=== PATIENT | male | born 1955 | race Caucasian/White ===

== ENCOUNTER → 2022-05-29 10:07 | Outpatient (BNVA) | payer OTHER, SELFPAY | PROVIDERS: Family Provider Family Medicine; PCP Family Medicine; Visit Provider Nurse Practitioner Family | DX: R14.0 Abdominal distension (gaseous) (principal); R10.9 Unspecified abdominal pain | CPT/HCPCS: 74018 ==

== ENCOUNTER → 2022-09-16 09:43 | Outpatient (BNVA) | payer OTHER, SELFPAY | PROVIDERS: Family Provider Family Medicine; PCP Family Medicine; Visit Provider Family Medicine | DX: I25.10 Atherosclerotic heart disease of native coronary artery without angina pectoris (principal); J44.9 Chronic obstructive pulmonary disease, unspecified | CPT/HCPCS: 80053; 80061; 85025 ==

== ENCOUNTER 2023-09-17 12:41 | Emergency (ER) | payer OTHER, SELFPAY ==
[2023-09-17 12:45] VITALS: BP 129/66; PULSE 63; RESP 18; TEMP 36.9; O2SAT 98; BMI 22.4
--- NOTE | 2023-09-17 12:50 | ECG_ITS ---
[facility] Test Date: 2023-09-17 Pat Name: Osmani Hill Department: Room: Gender: Male [employer]attling [employer] Tender: : 1955 Requested By: Grecia Silverman Order Number: [id number] Alisia MD: Jonel Reynolds M.D. Measurements Intervals [place] Rate: 64 P: 68 SD: 141 QRS: 65 QRSD: 89 T: 68 QT: 400 QTc: 415 Interpretive Statements SINUS RHYTHM No previous ECG available for comparison Electronically Signed On 09-17-2023 16:50:57 CDT by Jonel Reynolds M.D. [id number]
--- NOTE | 2023-09-17 12:50 | XRR_ITS ---
PROCEDURE INFORMATION: Exam: XR Chest Exam date and time: 09/17/2023 1:24 PM Age: 67 years old Clinical indication: Pain; Angina pectoris; Prior surgery; Surgery date: 6+ months; Surgery type: Hernia/angiogram with a coil placed; Additional info: Chest pain TECHNIQUE: Imaging protocol: Radiologic exam of the chest. Views: 1 view. COMPARISON: CR XR abdomen 1V* [id number] 05/29/2022 10:19 AM FINDINGS: Lungs: Emphysematous change suggested and particularly upper lobe on the right. No focal infiltrate or consolidation. Pleural spaces: No pleural effusion or pneumothorax. Heart/Mediastinum: Cardiac size is within normal limits. No cardiomegaly. Postsurgical change upper mediastinum on the right. This could be related to coil as noted by the clinical history and for clinical correlation. Bones/joints: Visualized osseous structures show no acute abnormality. XR/XR chest 1V portable [id number] IMPRESSION: 1. Suggestion of emphysematous change and particularly upper lobe on the right. 2. No acute findings.
[2023-09-17 13:39] LABS: Basophils % 0.3 %; Eosinophils % 0.5 %; Hematocrit 41.3 % (37-53); Lymphocytes # 1.1 10^3/uL (0.8-4.8); Lymphocytes % 29.1 %; Mean Corpuscular HGB Conc 34.6 g/dL (30-55); Mean Corpuscular Hemoglobin 32.1 pg (27-33); Mean Corpuscular Volume 92.6 fl (82-101); Mean Platelet Volume 9.7 fL (7.4-10.4); Monocytes # 0.7 10^3/uL (0.2-0.9); Monocytes % 17.6 %; Neutrophils # 1.95 10^3/uL (1.8-7.7); Neutrophils % 52.2 %; Nucleated Red Blood Cells % 0 %; Platelet Count 120 10^3/cmm (157-399); Red Blood Count 4.46 10^6/uL (3.85-5.65); Red Cell Distribution Width 12.2 % (12.1-15.1); White Blood Count 3.74 10^3/uL (3.29-11.43)
[2023-09-17 13:59] LABS: INR 0.92 (0.8-1.2)
[2023-09-17 14:00] LABS: Partial Thromboplastin Time 32.5 SECONDS (23.9-36.7)
[2023-09-17 14:04] LABS: Alanine Aminotransferase 16 U/L (0-41); Albumin Level 4.3 g/dL (3.5-5.2); Alkaline Phosphatase 47 U/L (40-130); Anion Gap 16.2 (5-19); Aspartate Amino Transferase 22 U/L (0-40); Blood Urea Nitrogen 17 mg/dL (8-23); C Reactive Protein 7.8 mg/L (0.0-4.9); Calcium 9.3 mg/dL (8.5-10.5); Carbon Dioxide 23 mmol/L (22-29); Chloride 98 mmol/L (98-107); Creatinine Clr Calc Pharmacy 101.2161; Globulin 2.7 g/dL (1.3-4.6); Glomerular Filtration Rate 112.8 mL/min (90-130); Glucose 89 mg/dL (65-115); Osmolality Calculated 277 mOsm/kg (285-295); Potassium 4.2 mmol/L (3.5-5.1); Sodium 133 mmol/L (136-145); Total Bilirubin 0.3 mg/dL (0.15-1.2)
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
[2023-09-17 14:06] LABS: Troponin(5th) Baseline 14 ng/L (0-15)
[2023-09-17] MEDS: LORazepam 2 mg/mL INJ 1 mL 1 MG IVP (14:30)
[2023-09-17] MEDS: sodium chloride 0.9% 1,000 ML 999 ML IV (14:31)
[2023-09-17 14:33] VITALS: BP 105/75; PULSE 68; RESP 18; O2SAT 97
[2023-09-17 15:31] VITALS: BP 131/80; PULSE 71; O2SAT 98
== END 2023-09-17 15:30 | disposition home or self-care (01) ==
PROVIDERS: Emergency Provider Emergency Medicine; PCP Family Medicine
DX: F41.8 Other specified anxiety disorders (principal); K92.2 Gastrointestinal hemorrhage, unspecified; E86.0 Dehydration; R07.89 Other chest pain; Z79.02 Long term (current) use of antithrombotics/antiplatelets; I25.10 Atherosclerotic heart disease of native coronary artery without angina pectoris; J44.9 Chronic obstructive pulmonary disease, unspecified; I10 Essential (primary) hypertension; F03.90 Unspecified dementia, unspecified severity, without behavioral disturbance, psychotic disturbance, mood disturbance, and anxiety
CPT/HCPCS: 36415; 71045; 80053; 83605; 84484; 85025; 85610; 85730; 86140; 86850; 86900; 93005; 96361; 96374; 99285; J2060; J7030

== ENCOUNTER → 2023-11-30 15:00 | Outpatient (BNVA) | payer OTHER, SELFPAY | PROVIDERS: PCP Family Medicine; Visit Provider Nurse Practitioner Family | DX: I25.10 Atherosclerotic heart disease of native coronary artery without angina pectoris (principal); R03.0 Elevated blood-pressure reading, without diagnosis of hypertension | CPT/HCPCS: 80053; 80061; 85025 ==